=== PATIENT | female | born 1985 | race Asian ===

== ENCOUNTER 2016-08-17 13:15 | Outpatient (CLI) | payer OTHER ==
[2016-08-17] MEDS ORDERED: IOHEXOL 50 ML IV ONE (13:41)
== END 2016-08-17 18:59 | disposition home or self-care (01) ==
LOC: SRD 13:15
PROVIDERS: ATTEND Obstetrics & Gynecology
DX: Z01.818 Encounter for other preprocedural examination (principal); N92.6 Irregular menstruation, unspecified; N97.9 Female infertility, unspecified
CPT/HCPCS: 74740; C1751; Q9967